=== PATIENT | male | born 1985 | race Caucasian/White ===

== ENCOUNTER → 2023-07-01 | Outpatient (CLI) | payer OTHER ==
[~2023-07-01] MED LIST: SUMA50TA2 PO
== END ==
LOC: M SOG 09:39
PROVIDERS: ATTEND Orthopaedic Surgery Hand Surgery
DX: M25.521 Pain in right elbow (principal)

== ENCOUNTER 2023-07-04 06:32 | Day surgery (SDC) | payer OTHER ==
[~2023-07-04] VITALS: Ht 175.3 cm; Wt 82.6 kg
[2023-07-04] MEDS ORDERED: LIDOCAINE 1% SDV 5ML VIAL PN ONE (07:05)
[2023-07-04] MEDS ORDERED: dexAMETHasone 10MG/1ML VIAL PRES.FREE PN ONE (07:05)
[2023-07-04] MEDS ORDERED: MIDAZOLAM INJ 2MG/2ML VIAL IV PRN (07:05)
[2023-07-04] MEDS ORDERED: fentaNYL 100 MCG/2 ML INJECTION IV PRN ×2 (07:05→11:45)
[2023-07-04] MEDS ORDERED: ROPIvacaine 0.5% 30ML VIAL PN ONE (07:05)
[2023-07-04] MEDS ORDERED: ONDANSETRON 4MG 2ML VIAL As Ordered ONE (07:21)
[2023-07-04] MEDS ORDERED: fentaNYL 100 MCG/2 ML INJECTION As Ordered ONE (07:21)
[2023-07-04] MEDS ORDERED: LIDOCAINE 2% 100MG/5ML SDV (FOR ANES.) As Ordered ONE (07:21)
[2023-07-04] MEDS ORDERED: propofoL 200 MG/20 ML VIAL As Ordered ONE (07:21)
[2023-07-04] MEDS ORDERED: MIDAZOLAM INJ 2MG/2ML VIAL As Ordered ONE (07:21)
[2023-07-04] MEDS ORDERED: ROCURONIUM BROMIDE 50MG/5ML VIAL As Ordered ONE (07:21)
[2023-07-04] MEDS: LR 1,000 ML IV SCH (07:21)
[2023-07-04] MEDS ORDERED: VANCOMYCIN 1000MG/20ML VIAL As Ordered ONE (07:23)
[2023-07-04] MEDS: MIDAZOLAM INJ 2MG/2ML VIAL IV PRN (07:29)
[2023-07-04] MEDS: fentaNYL 100 MCG/2 ML INJECTION IV PRN (07:29)
[2023-07-04] MEDS: EPINEPHrine INJ 1 MG/ML 1ML AMP PN ONE (07:37)
[2023-07-04] MEDS: ROPIvacaine 0.5% 30ML VIAL PN ONE (07:37)
[2023-07-04] MEDS: dexAMETHasone 10MG/1ML VIAL PRES.FREE PN ONE (07:37)
[2023-07-04] MEDS: LIDOCAINE 1% SDV 5ML VIAL PN ONE (07:37)
[2023-07-04] MEDS: ceFAZolin SOD 2 GM in IV 1 EA IV ONE (07:50)
[2023-07-04] MEDS: TRANEXAMIC ACID 100 MG/ML 10ML VIAL As Ordered ONE (08:30)
[2023-07-04] MEDS ORDERED: ACETAMINOPHEN 1000MG 100ML IV BAG As Ordered ONE (08:54)
[2023-07-04] MEDS ORDERED: dexmedeTOMIDine (4MCG/ML)200MCG/50ML BTL (PRECEDEX) As Ordered ONE (09:35)
[2023-07-04] MEDS ORDERED: LABETALOL 100MG/20ML VIAL As Ordered ONE (10:42)
[2023-07-04] MEDS ORDERED: SUGAMMADEX SODIUM 500 MG/5 ML VIAL (BRIDION) As Ordered ONE (11:17)
[2023-07-04] MEDS: EPINEPHrine 1MG/ML INJ 30ML MD-VIAL As Ordered ONE (11:40)
[2023-07-04] MEDS ORDERED: HYDROMORPHONE HCL 0.5 MG/ 0.5 ML SYRINGE IV PRN (11:45)
[2023-07-04] MEDS ORDERED: oxyCODONE 5MG TAB PO PRN (11:45)
[2023-07-04] MEDS ORDERED: LR 1,000 ML IV SCH (11:45)
[2023-07-04 13:10] VITALS: BP 130/68; TEMP 97.5; O2SAT 97
== END 2023-07-04 13:20 | disposition home or self-care (01) ==
LOC: M SDC 06:32
PROVIDERS: ATTEND Orthopaedic Surgery
DX: S43.432A Superior glenoid labrum lesion of left shoulder, initial encounter (principal); M75.42 Impingement syndrome of left shoulder; M75.52 Bursitis of left shoulder; M94.212 Chondromalacia, left shoulder; M65.812 Other synovitis and tenosynovitis, left shoulder; I73.00 Raynaud's syndrome without gangrene; Z79.899 Other long term (current) drug therapy; G47.33 Obstructive sleep apnea (adult) (pediatric); G43.909 Migraine, unspecified, not intractable, without status migrainosus; Z87.891 Personal history of nicotine dependence
CPT/HCPCS: 29807; 29826; C1713; J0131; J0171; J0690; J1100; J1920; J2250; J2405; J3010

== ENCOUNTER 2023-07-22 10:19 | Emergency (ER) | payer OTHER ==
[~2023-07-22] VITALS: Ht 175.3 cm; Wt 82.2 kg
[2023-07-22] MEDS ORDERED: CELE0.09 (10:43)
[2023-07-22] MEDS ORDERED: GABA-282 (10:43)
[2023-07-22] MEDS ORDERED: ACET1TAB55 (10:43)
[2023-07-22] MEDS ORDERED: MIRA3350 PO (11:45)
[2023-07-22] MEDS ORDERED: VALT1TAB PO (11:45)
[2023-07-22] MEDS ORDERED: PERC5TAB12 PO (11:45)
[2023-07-22 11:56] VITALS: BP 157/96; TEMP 98.2; O2SAT 98
== END 2023-07-22 11:57 | disposition home or self-care (01) ==
LOC: M ED 11:41
DX: B02.9 Zoster without complications (principal)

== ENCOUNTER → 2023-08-12 | Outpatient (CLI) | payer OTHER ==
[~2023-08-12] MED LIST changes: +ACET1TAB55; +CELE0.09; +GABA-282; +MIRA3350 PO; +PERC5TAB12 PO; +VALT1TAB PO
== END ==
LOC: M RAD 10:11
PROVIDERS: ATTEND Orthopaedic Surgery Hand Surgery
DX: G56.21 Lesion of ulnar nerve, right upper limb (principal)

== ENCOUNTER 2023-10-22 09:53 | Day surgery (SDC) | payer OTHER ==
[~2023-10-22] VITALS: Ht 175.3 cm; Wt 82.7 kg
[~2023-10-22 09:53] MED LIST changes: +ACETAMINOPHEN 1000MG 100ML IV BAG As Ordered ONE; +ASPI-226 PO; +D 50CAP2 PO; -GABA-282; +GABA-282 PO; +LIDOCAINE 2% 100MG/5ML SDV (FOR ANES.) As Ordered ONE; +LORA-930 PO; +ONDANSETRON 4MG 2ML VIAL As Ordered ONE; +TOPI100T9 PO; +propofoL 200 MG/20 ML VIAL As Ordered ONE
[2023-10-22] MEDS ORDERED: LR 1,000 ML IV SCH (10:15)
[2023-10-22] MEDS ORDERED: ROPIvacaine 0.5% 30ML VIAL PN ONE (10:40)
[2023-10-22] MEDS ORDERED: LIDOCAINE 1% SDV 5ML VIAL PN ONE (10:45)
[2023-10-22] MEDS: fentaNYL 100 MCG/2 ML INJECTION IV PRN (10:45)
[2023-10-22] MEDS: MIDAZOLAM INJ 2MG/2ML VIAL IV PRN (10:46)
[2023-10-22] MEDS ORDERED: fentaNYL 100 MCG/2 ML INJECTION As Ordered ONE (11:00)
[2023-10-22] MEDS ORDERED: MIDAZOLAM INJ 2MG/2ML VIAL As Ordered ONE (11:00)
[2023-10-22 11:45] VITALS: BP 131/74; TEMP 97; O2SAT 97
[2023-10-22 12:00] LABS: SOURCE, BODY FLUID LT SHOULDER; SYNOVIAL FLUID COLOR RED (COLORLESS)
[2023-10-22 12:09] LABS: CRYSTALS, BODY FLUID NONE SEEN (NONE SEEN); SOURCE, BODY FLUID CRYSTALS LT SHOULDER
== END 2023-10-22 12:20 | disposition home or self-care (01) ==
LOC: M SDC 09:53
PROVIDERS: ATTEND Orthopaedic Surgery
DX: M75.02 Adhesive capsulitis of left shoulder (principal); G47.30 Sleep apnea, unspecified; G43.909 Migraine, unspecified, not intractable, without status migrainosus; J34.2 Deviated nasal septum; Z79.82 Long term (current) use of aspirin; Z79.899 Other long term (current) drug therapy; F17.220 Nicotine dependence, chewing tobacco, uncomplicated
CPT/HCPCS: 23700; 87070; 87075; 87102; 87205; 89051; 89060; J0131; J1100; J2250; J2405; J3010

== ENCOUNTER → 2024-01-21 | Outpatient (REF) | payer OTHER ==
[~2024-01-21] MED LIST changes: -ACETAMINOPHEN 1000MG 100ML IV BAG As Ordered ONE; +GABA-1172 PO; -GABA-282 PO; -LIDOCAINE 2% 100MG/5ML SDV (FOR ANES.) As Ordered ONE; -ONDANSETRON 4MG 2ML VIAL As Ordered ONE; -propofoL 200 MG/20 ML VIAL As Ordered ONE
[2024-01-21 18:00] LABS: ALBUMIN 4.2 G/DL (3.2-5.2); BLOOD UREA NITROGEN 16 MG/DL (9-23); CALCIUM LEVEL 9.6 MG/DL (8.5-10.1); CARBON DIOXIDE LEVEL 26 MMOL/L (20-31); CHLORIDE LEVEL 110 MMOL/L (98-107); CREATININE FOR GFR 1.24 MG/DL (0.70-1.30); GLOMERULAR FILTRATION RATE > 60.0 (>60); GLUCOSE, FASTING 84 MG/DL (60-100); SODIUM LEVEL 142 MMOL/L (136-145)
[2024-01-21 18:07] LABS: CREATININE, SERUM 1.2 MG/DL (0.70-1.30)
[2024-01-21 18:23] LABS: CREATININE CLEARANCE, URINE 132.1 ML/MIN (85-125); CREATININE, URINE 117.06 MG/DL
== END ==
LOC: M LAB REF 17:23
PROVIDERS: ATTEND Internal Medicine Nephrology
DX: N18.2 Chronic kidney disease, stage 2 (mild) (principal)

== ENCOUNTER → 2024-03-17 | Outpatient (CLI) | payer OTHER | LOC: M RAD 11:14 | PROVIDERS: ATTEND Internal Medicine Nephrology | DX: N18.2 Chronic kidney disease, stage 2 (mild) (principal); R10.83 Colic ==

== ENCOUNTER → 2024-04-26 | Outpatient (CLI) | payer OTHER ==
[~2024-04-26] MED LIST changes: +ISOVUE-300 61% 100ML VIAL As Ordered ONE; +LIDOCAINE 1% MDV 20ML VIAL As Ordered ONE; +TRIAMCINOLONE ACETONIDE SUSP 40MG/ML 1ML VIAL As Ordered ONE
== END ==
LOC: M RAD 09:48
PROVIDERS: ATTEND Physician Assistant Surgical
DX: S73.121A Ischiocapsular ligament sprain of right hip, initial encounter (principal); S73.122A Ischiocapsular ligament sprain of left hip, initial encounter; X58.XXXA Exposure to other specified factors, initial encounter; Y92.9 Unspecified place or not applicable
CPT/HCPCS: 20610; 77002; J3301; Q9967